=== PATIENT | female | born 1930 | race Caucasian/White ===

== ENCOUNTER 2018-03-28 12:44 | Emergency (ER) | payer MEDICARE, OTHER ==
[~2018-03-28] VITALS: Ht 160 cm; Wt 81.7 kg
[~2018-03-28 12:44] MED LIST: AMLODIPINE BESYL5 MG PO; BUSPIRONE HCL10 MG PO; FEMARA2.5 MG PO; GABAPENTIN100 MG PO; KEFLEX500 MG PO; LEVOTHYROXINE75 MCG PO; MELOXICAM15 MG PO; MIRTAZAPINE15 MG PO; PATADAY2.5 ML OPTH; PERCOCET 7.5-31 EACH PO; PLAQUENIL200 MG PO; SERTRALINE HCL100 MG PO; SIMVASTATIN40 MG PO; TRAZODONE HCL50 MG PO; VITAMIN D5000 UNIT PO
--- NOTE | 2018-03-28 13:44 | EKG ---
[facility] [address] [place], [place] [address] Signed Suspect unspecified pacemaker failure Sinus bradycardia Left axis deviation Anteroseptal infarct , age undetermined Abnormal ECG No previous ECGs available Confirmed by RAI TOUSSAINT DO ([id number]) on 03/28/2018 1:44:13 PM Electronically Signed By: RAI TOUSSAINT DO 03/28/18 1344 PATIENT NAME: REUBEN FIGUEROA Electrocardiogram DATE OF : 34 PHYSICIAN: RAI TOUSSAINT DO REPORT #: [id number] REPORT IS CONFIDENTIAL AND NOT TO BE RELEASED WITHOUT AUTHORIZATION
[2018-03-28] MEDS ORDERED: ONDANSETRON ODT8 MG PO (15:28)
== END 2018-03-28 16:20 | disposition home or self-care (01) ==
LOC: ED 12:44
DX: R55 Syncope and collapse (principal); I10 Essential (primary) hypertension; Z79.899 Other long term (current) drug therapy
CPT/HCPCS: 70450; 80053; 81001; 84484; 85025; 93005; 93010; 96374; 99284-25; J2405

== ENCOUNTER 2019-08-03 20:53 | Emergency (ER) | payer MEDICARE, OTHER ==
[~2019-08-03] VITALS: Ht 160 cm; Wt 68.0 kg
[~2019-08-03 20:53] MED LIST changes: +ONDANSETRON ODT8 MG PO
[2019-08-03] MEDS ORDERED: TRAZODONE HCL50 MG NG (21:05)
[2019-08-03] MEDS ORDERED: MELOXICAM15 MG PO (23:00)
[2019-08-03] MEDS ORDERED: ULTRA-LIGHT RO1 EACH MISC (23:01)
== END 2019-08-04 08:27 | disposition home or self-care (01) ==
LOC: ED 20:53
DX: S70.01XA Contusion of right hip, initial encounter (principal); I10 Essential (primary) hypertension; Z87.891 Personal history of nicotine dependence; Z79.899 Other long term (current) drug therapy; W18.30XA Fall on same level, unspecified, initial encounter
CPT/HCPCS: 51701; 73700; 81001; 99284-25

== ENCOUNTER 2022-04-22 22:59 | Emergency (ER) | payer OTHER, MEDICARE ==
[~2022-04-22] VITALS: Ht 160 cm; Wt 63.5 kg
[~2022-04-22 22:59] MED LIST changes: +DULOXETINE HCL60 MG PO; +LATANOPROST2.5 ML OPTH; +METOPROLOL SUCC25 MG PO; +TRAZODONE HCL50 MG NG; +ULTRA-LIGHT RO1 EACH MISC
== END 2022-04-23 01:26 | disposition home or self-care (01) ==
LOC: ED 22:59
DX: S40.011A Contusion of right shoulder, initial encounter (principal); S00.81XA Abrasion of other part of head, initial encounter; W01.10XA Fall on same level from slipping, tripping and stumbling with subsequent striking against unspecified object, initial encounter; I10 Essential (primary) hypertension; E03.9 Hypothyroidism, unspecified; Z87.891 Personal history of nicotine dependence; Z79.899 Other long term (current) drug therapy
CPT/HCPCS: 70450; 72125; 73030; 99284-25